=== PATIENT | male | born 1975 | race Caucasian/White ===

== ENCOUNTER 2020-01-29 10:49 | Emergency (ER) | payer MEDICAID ==
[~2020-01-29] VITALS: Ht 160 cm; Wt 68.9 kg
[2020-01-29 10:54] VITALS: Ht 160 cm; Wt 68.9 kg
[2020-01-29 13:44] VITALS: BP 132/80
== END 2020-01-29 13:30 | disposition home or self-care (01) ==
LOC: ED 10:49
DX: S61.211A Laceration without foreign body of left index finger without damage to nail, initial encounter (principal); W26.8XXA Contact with other sharp object(s), not elsewhere classified, initial encounter; Y93.89 Activity, other specified; Y92.89 Other specified places as the place of occurrence of the external cause; Y99.8 Other external cause status
CPT/HCPCS: 90715; J2001